=== PATIENT | male | born 1965 ===

== ENCOUNTER 2022-01-28 19:30 | Outpatient (CLI) | payer MEDICARE | END 2022-01-28 19:31 | disposition home or self-care (01) | LOC: SLEEPLAB 19:30 | PROVIDERS: ATTEND Physician Assistant | DX: G47.33 Obstructive sleep apnea (adult) (pediatric) (principal); E11.9 Type 2 diabetes mellitus without complications | CPT/HCPCS: 95811 ==

== ENCOUNTER 2022-12-16 17:21 | Observation (INO) | payer MEDICARE ==
[2022-12-16] MEDS ORDERED: Ondansetron ODT 4 MG TAB SL PRN (22:00)
[2022-12-16] MEDS ORDERED: Ondansetron PF 4 MG/2 ML Vial IVP PRN (22:00)
[2022-12-16] MEDS ORDERED: Acetaminophen 325 MG TAB PO PRN (22:00)
[2022-12-16] MEDS ORDERED: Dextrose 5% in Water 1,000 ML IV PRN (22:50)
[2022-12-16] MEDS ORDERED: HumaLOG 300 UNITS/3 ML VIAL SC PRN ×2 (22:50)
[2022-12-16] MEDS ORDERED: Dextrose 50% Abboject 50 ML SYRINGE SLOW IVP PRN (22:50)
[2022-12-16 22:58] VITALS: BMI 27.7
[2022-12-16] MEDS ORDERED: Maxitrol 0.1% Opth 5 ML BOT FS SCH (23:59)
[2022-12-17] MEDS: NEOMYCIN-POLYMYXIN-HC EAR SUSP 200 DROP/10 ML BOT EA EAR SCH ×3 (01:42→13:27)
[2022-12-17 05:45] LABS: #Basophils 0.1 thou/uL (0.0-0.2); #Eosinphils 0.3 thou/uL (0.0-0.7); #Lymphocytes 1.7 thou/uL (1.20-3.40); #Monocytes 0.6 thou/uL (0.11-0.59); #Neutrophils 6.2 thou/uL (1.40-6.50); %Basophils 0.6 % (0.0-1.0); %Lymphocytes 19.8 % (21.0-51.0); %Monocytes 6.4 % (0.0-10.0); %Neutrophils 70.2 % (42.0-75.0); Mean Corpuscular HGB CONC 34.7 g/dL (32.0-36.0); Mean Corpuscular Hemoglobin 33.2 pg (27.0-31.0); Mean Corpuscular Volume 95.8 fl (78.0-98.0); Mean Platelet Volume 6.9 fL (7.4-10.4); Platelet Count 331 10x3/uL (130-400); RBC Distribution Width 11.5 % (11.5-14.5); Red Blood Cell (RBC) Count 4.83 mill/uL (4.70-6.10); White Blood Cell (WBC) Count 8.8 10x3/uL (4.8-10.8)
[2022-12-17] MEDS ORDERED: clonazePAM 0.5 MG TAB PO SCH (05:45)
[2022-12-17 06:02] LABS: Hemoglobin A1c 7.8 % (4.0-6.0)
[2022-12-17 06:11] LABS: Anion Gap 10 mmol/L (10-20); BUN (Urea Nitrogen) 7 mg/dL (8.4-25.7); Calc. Creatinine Clearance 124 mL/min (70-130); Calcium 9.6 mg/dL (7.8-10.44); Carbon Dioxide 28 mmol/L (22-29); Cardiac Risk 3.8 (Less than 4.5); Chloride 104 mmol/L (98-107); Cholesterol 96 mg/dl (< 200 Desired); Estimated GFR 92; Glucose 148 mg/dL (70-105); HDL Cholesterol 25 mg/dL (>60 Neg Risk); LDL Cholesterol, Calculated 56 mg/dL; Potassium 5.1 mmol/L (3.5-5.1); Sodium 137 mmol/L (136-145); Triglycerides 74 mg/dL (Less than 150)
[2022-12-17] MEDS ORDERED: DULoxetine 60 MG CAP PO SCH (09:00)
[2022-12-17] MEDS ORDERED: Metoprolol Tartrate 25 MG TAB PO SCH (09:00)
[2022-12-17 11:56] VITALS: BP 151/79; TEMP 97.7
[2022-12-17] MEDS ORDERED: traZODone HCl 150 MG TAB PO SCH (21:00)
[2022-12-17] MEDS ORDERED: clonazePAM 1 MG TAB PO SCH (21:00)
[2022-12-17] MEDS ORDERED: Atorvastatin Calcium 40 MG TAB PO SCH (21:00)
[2022-12-18] MEDS ORDERED: CARIPRAZINE HCL 6 MG PO SCH (09:00)
== END 2022-12-17 14:50 | disposition home or self-care (01) ==
LOC: NEURO 17:21
PROVIDERS: ADMIT Family Medicine; ATTEND Family Medicine
DX: R53.1 Weakness (principal); H60.92 Unspecified otitis externa, left ear; E11.9 Type 2 diabetes mellitus without complications; I10 Essential (primary) hypertension; E78.5 Hyperlipidemia, unspecified; G89.29 Other chronic pain; M54.9 Dorsalgia, unspecified; F17.210 Nicotine dependence, cigarettes, uncomplicated; Z79.82 Long term (current) use of aspirin; Z79.84 Long term (current) use of oral hypoglycemic drugs; Z79.899 Other long term (current) drug therapy; Z88.2 Allergy status to sulfonamides; Z88.5 Allergy status to narcotic agent; Z88.8 Allergy status to other drugs, medicaments and biological substances
CPT/HCPCS: 36415; 36416; 70551; 80048; 80061; 83036; 84443; 85025; G0378; J1815